=== PATIENT | female | born 1960 | race Caucasian/White ===

== ENCOUNTER → 2018-05-07 09:23 | Outpatient (CLI) | payer OTHER, MEDICAID, SELFPAY ==
[2018-05-07 11:00] LABS: Hemoglobin A1C% w Est Avg Glu 5.8 % (4.0-6.0)
[2018-05-07 11:05] LABS: Alanine Aminotransferase 72 IU/L (9-52); Albumin 4.8 g/dL (3.5-5.0); Albumin Globulin Ratio 1.5 (1.0-2.8); Alkaline Phosphatase 78 U/L (38-126); Aspartate Aminotransferase 60 IU/L (14-36); Bilirubin Total 0.7 mg/dL (0.2-1.3); Blood Urea Nitrogen 12 mg/dL (7-17); Calcium 9.9 mg/dL (8.4-10.2); Carbon Dioxide 30 mmol/L (22-32); Chloride 102 mmol/L (98-107); Cholesterol 256 mg/dL (140-199); Estimated Glomerular Filt Rate > 60.0 mL/min (>60); Globulin 3.3 g/dL (1.7-4.1); Glucose 108 mg/dL (70-100); HDL Cholesterol 51 mg/dL (40-60); HEMOLYSIS < 15 (0-50); LDL Cholesterol Calculated 176 mg/dL (<100); Potassium 4.6 mmol/L (3.4-5.1); Sodium 144 mmol/L (137-145); Total Protein 8.1 g/dL (6.3-8.2); Triglycerides 146 mg/dL (35-150)
== END ==
PROVIDERS: PCP Physician Assistant; Visit Provider Physician Assistant
DX: E78.5 Hyperlipidemia, unspecified (principal); E11.9 Type 2 diabetes mellitus without complications
CPT/HCPCS: 36415; 80053; 80061; 83036

== ENCOUNTER → 2018-08-23 09:29 | Outpatient (CLI) | payer OTHER, MEDICAID, SELFPAY ==
[2018-08-23 09:58] LABS: Cholesterol 171 mg/dL (140-199); HDL Cholesterol 50 mg/dL (40-60); LDL Cholesterol Calculated 94 mg/dL (<100); Triglycerides 133 mg/dL (35-150)
== END ==
PROVIDERS: PCP Physician Assistant; Visit Provider Physician Assistant
DX: E78.5 Hyperlipidemia, unspecified (principal)
CPT/HCPCS: 36415; 80061

== ENCOUNTER → 2018-10-03 10:40 | Outpatient (CLI) | payer OTHER, MEDICAID, SELFPAY ==
[2018-10-03 12:18] LABS: Hemoglobin A1C% w Est Avg Glu 6.5 % (4.0-6.0)
== END ==
PROVIDERS: PCP Physician Assistant; Visit Provider Physician Assistant
DX: E11.9 Type 2 diabetes mellitus without complications (principal)
CPT/HCPCS: 36415; 83036

== ENCOUNTER → 2019-04-02 14:35 | Outpatient (CLI) | payer OTHER, MEDICAID, SELFPAY ==
[2019-04-02 14:52] LABS: Appearance Urine UA CLEAR; Bilirubin Urine UA NEGATIVE (NEGATIVE); Color Urine UA YELLOW; Glucose Urine UA NEGATIVE (Negative); Ketones Urine UA TRACE (NEGATIVE); Leukocyte Esterase Urine UA NEGATIVE (NEGATIVE); Nitrite Urine UA NEGATIVE (Negative); Occult Blood Urine UA NEGATIVE (Negative); Protein Urine UA NEGATIVE (Negative); Specific Gravity Urine UA >=1.030 (1.000-1.035); Urobilinogen Urine UA 0.2 E.U./dL (0.2)
[2019-04-02 15:39] LABS: Bacteria Urine Occasional (0-1); Culture Indicated Urine Cult Not Indicated; Mucus Urine 1+ (Negative); RBC Urine 0-1/HPF (0-5/HPF); Squamous Epithelial Cell Urine 1-5 /HPF (0-5/HPF); WBC Urine 0-1/HPF (0-5/HPF)
== END ==
PROVIDERS: PCP Physician Assistant; Visit Provider Physician Assistant
DX: R30.0 Dysuria (principal)
CPT/HCPCS: 81001

== ENCOUNTER → 2019-06-12 07:07 | Outpatient (CLI) | payer OTHER, MEDICAID, SELFPAY ==
[2019-06-12 08:19] LABS: Hemoglobin A1C% w Est Avg Glu 6.1 % (4.0-6.0)
[2019-06-12 08:23] LABS: Alanine Aminotransferase 28 IU/L (9-52); Albumin 4.9 g/dL (3.5-5.0); Albumin Globulin Ratio 1.4 (1.0-2.8); Alkaline Phosphatase 72 U/L (38-126); Aspartate Aminotransferase 29 IU/L (14-36); BUN Creatinine Ratio 21.4 (6-22); Bilirubin Total 0.9 mg/dL (0.2-1.3); Blood Urea Nitrogen 15 mg/dL (7-17); Calcium 10.2 mg/dL (8.4-10.2); Carbon Dioxide 31 mmol/L (22-32); Chloride 99 mmol/L (98-107); Cholesterol 169 mg/dL (140-199); Estimated Glomerular Filt Rate > 60.0 mL/min (>60); Globulin 3.4 g/dL (1.7-4.1); Glucose 120 mg/dL (70-100); HDL Cholesterol 45 mg/dL (40-60); HEMOLYSIS < 15 (0-50); LDL Cholesterol Calculated 91 mg/dL (<100); Potassium 4.7 mmol/L (3.4-5.1); Sodium 142 mmol/L (137-145); Total Protein 8.3 g/dL (6.3-8.2); Triglycerides 163 mg/dL (35-150)
[2019-06-12 08:54] LABS: Creatinine Urine Random 62.3 mg/dL
[2019-06-12 09:01] LABS: Microalbumi Creatinin Ratio Ur 9.6 ug/mg CR (<30); Microalbumin Urine Random < 0.6 mg/dL (0-1.6)
== END ==
PROVIDERS: PCP Physician Assistant; Visit Provider Physician Assistant
DX: E11.9 Type 2 diabetes mellitus without complications (principal); E78.5 Hyperlipidemia, unspecified
CPT/HCPCS: 36415; 80053; 80061; 82043; 82570; 83036

== ENCOUNTER → 2020-02-11 08:07 | Outpatient (CLI) | payer OTHER, MEDICAID, SELFPAY ==
[2020-02-11 09:35] LABS: Hemoglobin A1C% w Est Avg Glu 6.4 % (4.0-6.0)
[2020-02-11 10:13] LABS: Alanine Aminotransferase 22 IU/L (<35); Albumin 4.9 g/dL (3.5-5.0); Albumin Globulin Ratio 1.6 (1.0-2.8); Alkaline Phosphatase 77 U/L (38-126); Aspartate Aminotransferase 28 IU/L (14-36); BUN Creatinine Ratio 21.9 (6-22); Bilirubin Total 0.6 mg/dL (0.2-1.3); Blood Urea Nitrogen 16 mg/dL (7-17); Calcium 9.9 mg/dL (8.4-10.2); Carbon Dioxide 27 mmol/L (22-32); Chloride 100 mmol/L (98-107); Cholesterol 190 mg/dL (140-199); Estimated Glomerular Filt Rate > 60.0 mL/min (>60); Globulin 3.1 g/dL (1.7-4.1); Glucose 135 mg/dL (70-100); HDL Cholesterol 45 mg/dL (40-60); HEMOLYSIS < 15 (0-50); LDL Cholesterol Calculated 108 mg/dL (<100); Potassium 4.4 mmol/L (3.4-5.1); Sodium 139 mmol/L (137-145); Triglycerides 185 mg/dL (35-150)
[2020-02-11 10:53] LABS: Creatinine Urine Random 97.3 mg/dL
[2020-02-11 10:57] LABS: Microalbumi Creatinin Ratio Ur 11.3 ug/mg CR (<30); Microalbumin Urine Random 1.1 mg/dL (0-1.6)
== END ==
PROVIDERS: Physician Assistant; PCP Family Medicine; Referring Provider Family Medicine; Visit Provider Family Medicine
DX: E11.9 Type 2 diabetes mellitus without complications (principal); E78.5 Hyperlipidemia, unspecified
CPT/HCPCS: 36415; 80053; 80061; 82043; 82570; 83036

== ENCOUNTER → 2020-05-06 07:53 | Outpatient (CLI) | payer OTHER, MEDICAID, SELFPAY ==
[2020-05-06 08:42] LABS: Hemoglobin A1C% w Est Avg Glu 6.2 % (4.0-6.0)
[2020-05-06 08:51] LABS: Cholesterol 218 mg/dL (140-199); HDL Cholesterol 43 mg/dL (40-60); LDL Cholesterol Calculated 125 mg/dL (<100); Triglycerides 251 mg/dL (35-150)
== END ==
PROVIDERS: PCP Family Medicine; Referring Provider Family Medicine; Visit Provider Family Medicine
DX: E11.9 Type 2 diabetes mellitus without complications (principal); E78.2 Mixed hyperlipidemia
CPT/HCPCS: 36415; 80061; 83036

== ENCOUNTER → 2020-08-31 08:53 | Outpatient (CLI) | payer OTHER, MEDICAID, SELFPAY ==
[2020-08-31 10:41] LABS: Hemoglobin A1C% w Est Avg Glu 6.2 % (4.0-6.0)
[2020-08-31 11:24] LABS: Cholesterol 165 mg/dL (140-199); HDL Cholesterol 51 mg/dL (40-60); LDL Cholesterol Calculated 85 mg/dL (<100); Triglycerides 147 mg/dL (35-150)
== END ==
PROVIDERS: PCP Family Medicine; Referring Provider Family Medicine; Visit Provider Family Medicine
DX: E11.9 Type 2 diabetes mellitus without complications (principal); E78.00 Pure hypercholesterolemia, unspecified
CPT/HCPCS: 36415; 80061; 83036

== ENCOUNTER → 2021-02-26 08:07 | Outpatient (CLI) | payer OTHER, MEDICAID, SELFPAY ==
[2021-02-26 09:23] LABS: Hemoglobin A1C% w Est Avg Glu 6.2 % (4.0-6.0)
[2021-02-26 09:27] LABS: Alanine Aminotransferase 20 IU/L (<35); Albumin 4.4 g/dL (3.5-5.0); Albumin Globulin Ratio 1.5 (1.0-2.8); Alkaline Phosphatase 61 U/L (38-126); Aspartate Aminotransferase 27 IU/L (14-36); BUN Creatinine Ratio 30.2 (6-22); Bilirubin Total 0.8 mg/dL (0.2-1.3); Blood Urea Nitrogen 19 mg/dL (7-17); Calcium 9.8 mg/dL (8.4-10.2); Carbon Dioxide 27 mmol/L (22-32); Chloride 102 mmol/L (98-107); Cholesterol 165 mg/dL (140-199); Estimated Glomerular Filt Rate > 60.0 mL/min (>60); Globulin 2.9 g/dL (1.7-4.1); Glucose 116 mg/dL (70-100); HDL Cholesterol 51 mg/dL (40-60); HEMOLYSIS < 15 (0-50); LDL Cholesterol Calculated 86 mg/dL (<100); Potassium 4.4 mmol/L (3.4-5.1); Sodium 138 mmol/L (137-145); Total Protein 7.3 g/dL (6.3-8.2); Triglycerides 138 mg/dL (35-150)
== END ==
PROVIDERS: PCP Family Medicine; Referring Provider Family Medicine; Visit Provider Family Medicine
DX: E11.9 Type 2 diabetes mellitus without complications (principal); E78.2 Mixed hyperlipidemia
CPT/HCPCS: 36415; 80053; 80061; 83036

== ENCOUNTER → 2021-12-07 11:44 | Outpatient (CLI) | payer OTHER, MEDICAID, SELFPAY ==
[2021-12-07 12:55] LABS: Hemoglobin A1C% w Est Avg Glu 6.7 % (4.0-6.0)
[2021-12-07 13:32] LABS: Cholesterol 205 mg/dL (140-199); HDL Cholesterol 54 mg/dL (40-60); LDL Cholesterol Calculated 115 mg/dL (<100); Triglycerides 179 mg/dL (35-150)
[2021-12-07 13:50] LABS: Free T4, Direct Thyroxine 1.22 ng/dL (0.78-2.19)
[2021-12-07 14:03] LABS: Thyroid Stimulating Hormone 3.08 uIU/mL (0.47-4.68)
== END ==
PROVIDERS: PCP Family Medicine; Referring Provider Family Medicine; Visit Provider Family Medicine
DX: E11.9 Type 2 diabetes mellitus without complications (principal)
CPT/HCPCS: 36415; 80061; 83036; 84439; 84443; 84481

== ENCOUNTER → 2022-06-22 10:55 | Outpatient (CLI) | payer OTHER, MEDICAID, SELFPAY ==
[2022-06-22 11:42] LABS: Appearance Urine UA CLEAR; Bilirubin Urine UA NEGATIVE (NEGATIVE); Color Urine UA YELLOW; Glucose Urine UA NEGATIVE (Negative); Ketones Urine UA NEGATIVE (NEGATIVE); Leukocyte Esterase Urine UA 2+ (NEGATIVE); Nitrite Urine UA NEGATIVE (Negative); Occult Blood Urine UA NEGATIVE (Negative); Protein Urine UA NEGATIVE (Negative); Specific Gravity Urine UA 1.015 (1.000-1.035); Urobilinogen Urine UA 0.2 E.U./dL (0.2)
[2022-06-22 11:48] LABS: Bacteria Urine Few (2-10); Culture Indicated Urine Specimen Cultured; RBC Urine None Seen (0-5/HPF); Squamous Epithelial Cell Urine 0-1 /HPF (0-5/HPF); WBC Urine 5-10/HPF (0-5/HPF)
[2022-06-22 14:49] LABS: Cholesterol 184 mg/dL (140-199); HDL Cholesterol 46 mg/dL (40-60); LDL Cholesterol Calculated 116 mg/dL (<100); Triglycerides 108 mg/dL (35-150)
== END ==
PROVIDERS: PCP Family Medicine; Referring Provider Family Medicine; Visit Provider Family Medicine
DX: E11.9 Type 2 diabetes mellitus without complications (principal); E78.2 Mixed hyperlipidemia; N30.90 Cystitis, unspecified without hematuria
CPT/HCPCS: 36415; 80061; 81001; 83036; 87086

== ENCOUNTER → 2022-07-07 13:44 | Outpatient (CLI) | payer OTHER, MEDICAID, SELFPAY ==
[2022-07-07 14:23] LABS: Appearance Urine UA CLEAR; Bilirubin Urine UA NEGATIVE (NEGATIVE); Color Urine UA YELLOW; Glucose Urine UA NEGATIVE (Negative); Ketones Urine UA NEGATIVE (NEGATIVE); Leukocyte Esterase Urine UA NEGATIVE (NEGATIVE); Nitrite Urine UA NEGATIVE (Negative); Occult Blood Urine UA NEGATIVE (Negative); Protein Urine UA NEGATIVE (Negative); Specific Gravity Urine UA <=1.005 (1.000-1.035); Urobilinogen Urine UA 0.2 E.U./dL (0.2)
[2022-07-07 15:15] LABS: pH Urine UA 7.5 (4.5-8.0)
== END ==
PROVIDERS: PCP Family Medicine; Referring Provider Nurse Practitioner; Visit Provider Nurse Practitioner
DX: Z87.440 Personal history of urinary (tract) infections (principal)
CPT/HCPCS: 81003

== ENCOUNTER → 2022-07-13 13:23 | Outpatient (CLI) | payer OTHER, MEDICAID, SELFPAY ==
[2022-07-13 14:38] LABS: Appearance Urine UA CLEAR; Bilirubin Urine UA NEGATIVE (NEGATIVE); Color Urine UA YELLOW; Glucose Urine UA NEGATIVE (Negative); Ketones Urine UA NEGATIVE (NEGATIVE); Leukocyte Esterase Urine UA 1+ (NEGATIVE); Nitrite Urine UA NEGATIVE (Negative); Occult Blood Urine UA 1+ (Negative); Protein Urine UA NEGATIVE (Negative); Urobilinogen Urine UA 0.2 E.U./dL (0.2)
[2022-07-13 14:51] LABS: Bacteria Urine Few (2-10); Culture Indicated Urine Specimen Cultured; RBC Urine 0-1/HPF (0-5/HPF); Squamous Epithelial Cell Urine 1-5 /HPF (0-5/HPF); WBC Urine 1-5/HPF (0-5/HPF)
== END ==
PROVIDERS: PCP Family Medicine; Referring Provider Nurse Practitioner; Visit Provider Nurse Practitioner
DX: R30.0 Dysuria (principal)
CPT/HCPCS: 81003; 81015; 87086

== ENCOUNTER → 2022-08-01 16:42 | Outpatient (CLI) | payer OTHER, MEDICAID, SELFPAY ==
--- NOTE | 2022-08-01 16:43 | DI.US.S_ITS ---
PROCEDURE: US PELVIC COMPLETE INDICATIONS: pelvic pain left TECHNIQUE: Real-time scanning was performed of the pelvic organs, with image documentation. Additional endovaginal scanning was necessary due to incomplete visualization of the adnexal and endometrial structures by transabdominal scanning. COMPARISON: [facility], , PELVIC COMPLETE, 03/09/2010, 8:57. FINDINGS: Uterus: Uterus measures 8.1 x 4.9 x 3.9 cm. The myometrium is mildly heterogeneous. The endometrium measures 1.7 mm combined thickness. There is a midline submucosal fibroid which measures 3.0 x 3.1 x 2.1 cm. Ovaries: The ovaries are not visualized. Other: No pathologic free abdominal or pelvic fluid. IMPRESSION: 1. Fibroid uterus. 2. Nonvisualized ovaries. We strive to produce accurate, complete, and clear reports of imaging services. To assist us in improving patient care, this report was composed using standard report templates and voice recognition software. Therefore, it may contain abnormal punctuation, insertions and/or omissions. Occasional wrong-word or sound-alike substitutions may occur. Though we review the report and make efforts to correct it, we do recommend that the report be read carefully in proper context to recognize any text inaccuracies. Dictated by: Dulce Fernandez M.D. on 08/02/2022 at 11:12 Approved by: Dulce Fernandez M.D. on 08/02/2022 at 11:15
== END ==
PROVIDERS: PCP Family Medicine; Referring Provider Nurse Practitioner; Visit Provider Nurse Practitioner
DX: D25.0 Submucous leiomyoma of uterus (principal); R10.2 Pelvic and perineal pain
CPT/HCPCS: 76830; 76856

== ENCOUNTER → 2022-10-17 10:38 | Outpatient (CLI) | payer OTHER, MEDICAID, SELFPAY ==
[2022-10-18 16:31] LABS: Fecal Immunochemical Test Negative (Negative)
== END ==
PROVIDERS: PCP Family Medicine; Referring Provider Nurse Practitioner; Visit Provider Nurse Practitioner
DX: Z12.11 Encounter for screening for malignant neoplasm of colon (principal)
CPT/HCPCS: 82274

== ENCOUNTER → 2023-02-28 10:23 | Outpatient (CLI) | payer OTHER, MEDICAID, SELFPAY ==
[2023-02-28 11:51] LABS: Add Manual Diff / Slide Review NO; Basophils Absolute Auto 0 /uL (0-100); Basophils Percent Auto 0.5 % (0-2); Eosinophils Absolute Auto 100 /uL (0-450); Eosinophils Percent Auto 1.8 % (2-4); Hematocrit 40.7 % (36-46); Lymphocytes Absolute Auto 2500 /uL (1100-4500); Lymphocytes Percent Auto 33.2 % (25-40); Mean Corpuscular HGB Conc 34.5 % (30-36); Mean Corpuscular Hemoglobin 31.5 PG (26-34); Mean Corpuscular Volume 91.3 fL (80-100); Monocytes Absolute Auto 500 /uL (0-900); Monocytes Percent Auto 6.3 % (3-14); Neutrophils Absolute Auto 4300 /uL (1500-7000); Neutrophils Percent Auto 58.2 % (50-75); Platelet Count 235 X10^3/uL (150-400); Red Blood Cell Count 4.46 X10^6/uL (4.0-5.2); Red Cell Distribution Width 12.5 % (11.6-14.8); White Blood Cell Count 7.4 X10^3/uL (4.5-11.0)
[2023-02-28 12:10] LABS: Alanine Aminotransferase 25 IU/L (<35); Albumin 4.5 g/dL (3.5-5.0); Albumin Globulin Ratio 1.4 (1.0-2.8); Alkaline Phosphatase 83 U/L (38-126); Aspartate Aminotransferase 26 IU/L (14-36); BUN Creatinine Ratio 22.5 (6-22); Blood Urea Nitrogen 16 mg/dL (7-17); Calcium 9.4 mg/dL (8.4-10.2); Carbon Dioxide 27 mmol/L (22-32); Chloride 100 mmol/L (98-107); Cholesterol 294 mg/dL (140-199); Estimated Glomerular Filt Rate > 60 mL/min (>60); Globulin 3.2 g/dL (1.7-4.1); Glucose 122 mg/dL (80-110); HDL Cholesterol 46 mg/dL (40-60); HEMOLYSIS < 15 (0-50); LDL Cholesterol Calculated 204 mg/dL (<100); Potassium 4.4 mmol/L (3.4-5.1); Sodium 137 mmol/L (137-145); Total Protein 7.7 g/dL (6.3-8.2); Triglycerides 221 mg/dL (35-150)
[2023-02-28 12:23] LABS: Vitamin D 25 Hydroxy (D3) 19.8 ng/mL (30.0-100.0)
[2023-02-28 12:36] LABS: TSH w/ Reflex to FT4 3.02 uIU/mL (0.47-4.68)
[2023-02-28 14:26] LABS: Creatinine Urine Random 29.9 mg/dL
[2023-02-28 14:32] LABS: Microalbumin Urine Random < 0.6 mg/dL (0-1.6)
[2023-03-01 11:16] LABS: x Labcorp Estim. Avg Glu (eAG) 146 mg/dL (.); x Labcorp Hemoglobin A1c 6.7 % (4.8-5.6)
== END ==
PROVIDERS: PCP Family Medicine; Referring Provider Family Medicine; Visit Provider Family Medicine
DX: E11.9 Type 2 diabetes mellitus without complications (principal); E78.2 Mixed hyperlipidemia; F51.05 Insomnia due to other mental disorder
CPT/HCPCS: 36415; 80053; 80061; 82043; 82306; 82570; 83036; 84443; 85025

== ENCOUNTER 2023-05-22 07:35 | Day surgery (SDC) | payer OTHER, MEDICAID, SELFPAY ==
[2023-05-16 08:18] VITALS: BMI 28.1
[2023-05-22] VITALS (12 sets, daily range): BP systolic 109–132; BP diastolic 63–72; PULSE 54–89; RESP 10–17; TEMP 35.9–37; O2SAT 94–99; BMI 27.6
--- NOTE | 2023-05-22 | PATH_ITS ---
[facility] Accession Number: [id number] No. of containers..01 Tissue . 01 Material submitted: . uterus - UTERUS,BILATERAL FALLOPIAN TUBES, RIGHT OVARY . 01 Diagnosis: Uterus, Left and Right Fallopian Tubes, and Right Ovary, Supracervical Hysterectomy, Bilateral Salpingectomy, and Oophorectomy: Endometrium: Inactive. 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 Fallopian tubes: Bilateral paratubal cysts. Ovary: Struma ovarii; negative for malignancy. - Background postmenopausal changes with corpora albicantia and multiple cystic follicles. [facility] 05/26/2023 1704 Local . 01 Electronically signed: . Yeni Mckeon MD, Pathologist NPI- [id number] . 01 Gross description: . The specimen is received in formalin labeled with the patient's name, , and uterus, R ovary, fallopian tubes consist of a fragmented uterus (51 grams and aggregating to 9.8 x 8.0 x 2.0 cm) with two detached, unoriented fimbriated fallopian tubes (3.6 x 0.4 cm and 4.0 x 0.6 cm), and single presumed right ovary (6 grams, 3.2 x 2.0 x 1.6 cm) with no cervix or additional adnexa. The serosa is monae to violaceous and roughened. The presumed endometrium is monae to brown and velvety averaging less than 0.1 cm thick. Sectioning reveals a well-circumscribed white whorled nodule measuring 2.1 cm in greatest dimension with no hemorrhage or necrosis identified. . The longer fallopian tube has monae smooth serosa with multiple cystic structures measuring up to 0.4 cm in greatest dimension filled with cloudy serous fluid. Sectioning reveals an unremarkable stellate lumen. The shorter fallopian tube has monae, smooth serosa with multiple cystic structures measuring up to 0.5 cm in greatest dimension filled with cloudy serous fluid. Sectioning reveals an unremarkable stellate lumen. . The ovary has a monae cerebriform external surface with multiple visible cystic structures. Sectioning reveals multiple cystic structures ranging from 0.3 to 1.3 cm in greatest dimension with contents ranging from monae and serous to monae and gelatinous to semi-solid. The dotson average 0.1 cm thick and are smooth with no excrescences identified. Minimal presumed normal ovarian parenchyma is identified. . Box Office Clerk sections are submitted as follows: A1: Endometrium, A2: Serosa. A3: Nodule. A4: Longer fallopian tube to include one-half of bisected fimbriae and cross sections. A5: Lake fallopian tube to include one-half of bisected fimbriae and cross sections. A6-A9: Box Office Clerk ovary with cystic structures. ([id number]) /MRV 05/24/2023 1235 Local . 01 Pathologist provided ICD-10: D27.9 . 01 CPT . 851593 Specimen Comment: A courtesy copy of this report has been sent to [phone] Performed at: 01 [facility] [address] [place] [address] [address] [facility], [place], [place] [id number] MD Christiano Rendon MD Phone: [phone]
[2023-05-22] MEDS: LACTATED RINGERS 1,000 ML 42 ML IV (08:22)
[2023-05-22] MEDS: SCOPOLAMINE 1 PATCH TOP (08:26)
[2023-05-22] MEDS: ACETAMINOPHEN 325 MG TABLET 975 MG PO (08:26)
--- NOTE | 2023-05-22 09:54 | PM.PREOP ---
Pre-operative Note COVID-19 Criteria for continued procedure: Non-surgical alternatives not available or appropriate per current SOC Interval Note History & Physical reviewed/Exam performed by Physician: Yes Changes to H&P: No H&P completed within 30 days and has changed as indicated here:: 05/02/23
[2023-05-22] MEDS: CEFAZOLIN 2 GM/100 ML PREMIX 100 ML IV (10:45)
--- NOTE | 2023-05-22 10:54 | SUR.OPER ---
Lithotomy on padded OR bed. Laporte Pad Positioner under torso. Head on pillow, arms padded and tucked at sides. Legs secured in padded yellow fins stirrups.
[2023-05-22] MEDS: BUPIVACAINE 0.5% (PF) 30 ML, EPINEPHrine 0.15 MG INJ (12:30)
--- NOTE | 2023-05-22 12:31 | P.OP_ITS ---
Operative Date/Time/Diagnoses Date of procedure: 05/22/23 Time of procedure: 12:31 Pre-op diagnosis: Pelvic pain Fibroid uterus Prolapse Post-op diagnosis: same Procedure & Clinicians Procedure: Procedures Operation Date: 05/22/23 09:15 Actual Procedure Side Surgeon p Laparoscopic Supracervical Hysterectomy w/ bilateral salpingectomy, Possible Uterosacral ligament fixation Radha Rosenthal MD Indications: 63 year old with pelvic pain, fibroid uterus and prolapse Surgeon: Radha Rosenthal Straightener Gun Parts: Olivia Myers Anesthesia Type: General and Local Operative Notes Findings: 8 wk size fibroid uterus 6 cm multicystic right ovary Normal tubes Normal left ovary Liver with cirrhosis Appendix not visualized Normal gallbladder 6cm fibroid in lower uterine segment, midline Closure Type: primary Specimen(s): left tube, right tube & ovary and uterus Applied: catheter (Removed at the end of the case) Estimated blood loss (mL): 100 Blood products transfused: none Procedure in detail: The patient was taken to the operating room where she was placed in the dorsal supine position. After adequate general endotracheal anesthesia was achieved, she was placed in the dorsal lithotomy position, and prepped and draped in the usual sterile fashion. A timeout was performed. A bivalve speculum was placed into the vagina and the anterior lip of the cervix grasped with a single-tooth tenaculum. The cervical os was sequentially dilated until the ZUMI uterine manipulator could pass easily into the endometrial cavity. The single-tooth tenaculum was removed from the anterior lip of the cervix, and the bivalve speculum was removed from the vagina. Attention was then turned to the abdomen where 6 mL of half percent Marcaine with epinephrine were injected in the umbilical fold. A 5 mm incision was made. The veress needle was placed into the peritoneal cavity, and its placement confirmed by aspiration and drop test. The veress needle was removed. A 5 mm trocar was placed without difficulty. 2 other incisions were made 4 cm lateral to the umbilicus after 5 mL of half percent Marcaine with epinephrine were injected. These were 5 mm incisions. Two, 5 mm trocars were placed under direct visualization. There was found to be a large multiloculated cyst on the right ovary. The right tube was grasped with an atraumatic grasper. Using the power seal, the infundibulopelvic ligament on the right side was cauterized and cut. The mesosalpinx was cauterized and cut. The broad ligament was cauterized and cut. Hemostasis was achieved. The bladder flap was created using the power seal with cautery and cut shelter across. The uterine arteries on the right side were extensively cauterized with the power seal. On the left side the tube was grasped with an atraumatic grasper. The mesosalpinx was cauterized and cut with a power seal all the way down to the cornua of the uterus. The cornua was grasped with an atraumatic grasper. The broad ligament and round ligament were cauterized and cut with the power seal. The remainder of the bladder flap was created using the power seal and the bladder was taken down off the lower uterine segment and cervix. Using the Margaret aloop, the cervix was amputated from the uterus 2 cm above the uterosacral ligaments, after the ZUMI uterine manipulator was removed from the uterus and a moistened sponge stick was placed in the vagina. There was a portion of the fibroid remaining on the cervix. This was carved out of the cervix using the J- hook. This was placed into the anterior cul-de-sac. There was a small amount of bleeding noted from the posterior edge of the cervix, and this was cauterized for hemostasis. 6 mL of half percent Marcaine with epinephrine were injected above the pubic symphysis. A 12mm incision was made. A 12 mm trocar was placed under direct visualization. A large Endobag was placed through the suprapubic incision and the uterus, left tube, right tube and ovary, piece of fibroid, and a phlebolith were placed into the Endobag. The trocar was removed and the edges of the endobag were brought up through the skin. The uterus was grasped with a Alix. An Rodri was placed into the endobag. The uterus, tubes, and right ovary were morcellated in approximately 12 pieces. The Endobag and Rodri were removed from the peritoneal cavity. The pelvis was copiously irrigated with warm normal saline. No bleeding was noted. 20 mL of 0.2% ropivacaine were placed over the pelvic pedicles. The instruments were removed from the abdomen. The CO2 was allowed to escape. The suprapubic incision was closed on the fascia with 0 Vicryl. All of the incisions were closed with 4-0 Biosyn in a subcuticular fashion. Steri strips, and Allevyn dressings were placed over the incisions. The moistened sponge stick was removed from the vagina. The vagina was inspected. There was sidewall prolapse. The cervix was well supported. Sponge, lap, and instrument counts were correct x 2. The patient tolerated the procedure well, was taken to PACU in stable condition. Complications: none Post-operative Condition: stable Disposition: PACU Plan for aftercare: Home after recovery
[2023-05-22] MEDS: OXYCODONE IR 5 MG TABLET PO ×2 (13:12→13:49)
[2023-05-22] MEDS: HYDROMORPHONE 1 MG INJ IV ×2 (13:17→13:26)
--- NOTE | 2023-05-22 13:56 | SUR.PHASEI ---
1249 - Pt received to PACU after general anesthesia. Airway patent, self maintained. Report from VONNIE Ambrose and circulating RN.
== END 2023-05-22 14:45 | disposition home or self-care (01) ==
PROVIDERS: PCP Family Medicine; Referring Provider Obstetrics & Gynecology; Visit Provider Obstetrics & Gynecology
PROC: 0UT94ZL Resection of Uterus, Supracervical, Percutaneous Endoscopic Approach (ICD-10-PCS; CPT 58542; principal; 2023-05-22 09:15)
DX: R10.2 Pelvic and perineal pain (principal); D25.9 Leiomyoma of uterus, unspecified; K74.60 Unspecified cirrhosis of liver; N81.2 Incomplete uterovaginal prolapse; N83.8 Other noninflammatory disorders of ovary, fallopian tube and broad ligament; D27.0 Benign neoplasm of right ovary
CPT/HCPCS: 58542; 82962; J0171; J0690; J1100; J1170; J1885; J2250; J2405; J2704; J3010

== ENCOUNTER → 2023-07-31 09:23 | Outpatient (CLI) | payer OTHER, MEDICAID, SELFPAY ==
[2023-07-31 11:11] LABS: Cholesterol 258 mg/dL (140-199); HDL Cholesterol 43 mg/dL (40-60); LDL Cholesterol Calculated 161 mg/dL (<100); Triglycerides 270 mg/dL (35-150)
[2023-07-31 11:29] LABS: Vitamin D 25 Hydroxy (D3) 43.8 ng/mL (30.0-100.0)
== END ==
PROVIDERS: PCP Family Medicine; Referring Provider Family Medicine; Visit Provider Family Medicine
DX: E78.5 Hyperlipidemia, unspecified (principal); E55.9 Vitamin D deficiency, unspecified
CPT/HCPCS: 36415; 80061; 82306

== ENCOUNTER → 2023-11-15 08:50 | Outpatient (CLI) | payer OTHER, MEDICAID, SELFPAY ==
[2023-11-15 10:31] LABS: Cholesterol 183 mg/dL (140-199); HDL Cholesterol 49 mg/dL (40-60); LDL Cholesterol Calculated 109 mg/dL (<100); Triglycerides 126 mg/dL (35-150)
== END ==
LOC: LAB 08:51
PROVIDERS: PCP Family Medicine; Referring Provider Family Medicine; Visit Provider Family Medicine
DX: E78.5 Hyperlipidemia, unspecified (principal)
CPT/HCPCS: 36415; 80061

== ENCOUNTER → 2024-04-02 12:43 | Outpatient (CLI) | payer OTHER, MEDICAID, SELFPAY ==
[2024-04-04 09:36] LABS: Fecal Immunochemical Test Negative (Negative)
== END ==
PROVIDERS: PCP Family Medicine; Referring Provider Family Medicine; Visit Provider Family Medicine
DX: Z12.11 Encounter for screening for malignant neoplasm of colon (principal)
CPT/HCPCS: 82274

== ENCOUNTER → 2024-11-15 07:12 | Outpatient (CLI) | payer OTHER, SELFPAY ==
[2024-11-15 07:37] LABS: Add Manual Diff / Slide Review NO; Basophils Absolute Auto 0 /uL (0-100); Basophils Percent Auto 0.6 % (0-2); Eosinophils Absolute Auto 100 /uL (0-450); Eosinophils Percent Auto 1.6 % (2-4); Hematocrit 41.1 % (36-46); Hemoglobin 14.2 g/dL (12.0-16.0); Lymphocytes Absolute Auto 2900 /uL (1100-4500); Lymphocytes Percent Auto 39.9 % (25-40); Mean Corpuscular HGB Conc 34.6 % (30-36); Mean Corpuscular Hemoglobin 31.4 PG (26-34); Mean Corpuscular Volume 90.9 fL (80-100); Monocytes Absolute Auto 600 /uL (0-900); Monocytes Percent Auto 8.4 % (3-14); Neutrophils Absolute Auto 3600 /uL (1500-7000); Neutrophils Percent Auto 49.5 % (50-75); Platelet Count 242 X10^3/uL (150-400); Red Blood Cell Count 4.52 X10^6/uL (4.0-5.2); Red Cell Distribution Width 12.5 % (11.6-14.8); White Blood Cell Count 7.2 X10^3/uL (4.5-11.0)
[2024-11-15 07:44] LABS: Hemoglobin A1C% w Est Avg Glu 6.5 % (4.0-6.0)
[2024-11-15 07:50] LABS: Alanine Aminotransferase 22 IU/L (<35); Albumin 4.8 g/dL (3.5-5.0); Albumin Globulin Ratio 1.5 (1.0-2.8); Alkaline Phosphatase 70 U/L (38-126); Aspartate Aminotransferase 31 IU/L (14-36); BUN Creatinine Ratio 24.1 (6-22); Bilirubin Total 0.9 mg/dL (0.2-1.3); Blood Urea Nitrogen 19 mg/dL (7-17); Calcium 9.1 mg/dL (8.4-10.2); Carbon Dioxide 24 mmol/L (22-32); Chloride 105 mmol/L (98-107); Cholesterol 143 mg/dL (140-199); Estimated Glomerular Filt Rate > 60 mL/min (>60); Globulin 3.2 g/dL (1.7-4.1); Glucose 111 mg/dL (80-110); HDL Cholesterol 44 mg/dL (40-60); HEMOLYSIS < 15 (0-50); LDL Cholesterol Calculated 67 mg/dL (<100); Potassium 4.3 mmol/L (3.4-5.1); Sodium 140 mmol/L (137-145); Triglycerides 158 mg/dL (35-150)
[2024-11-15 08:08] LABS: Vitamin D 25 Hydroxy (D3) 35.6 ng/mL (30.0-100.0)
== END ==
PROVIDERS: PCP Family Medicine; Referring Provider Family Medicine; Visit Provider Family Medicine
DX: E55.9 Vitamin D deficiency, unspecified (principal); E78.5 Hyperlipidemia, unspecified; E11.9 Type 2 diabetes mellitus without complications
CPT/HCPCS: 36415; 80053; 80061; 82306; 83036; 85025